=== PATIENT | male | born 1945 | race Two or more races ===

== ENCOUNTER 2022-02-08 21:00 | Emergency (ER) | payer MEDICARE, OTHER ==
[~2022-02-08] VITALS: Ht 167.6 cm; Wt 81.6 kg
--- NOTE | 2022-02-08 21:00 | NUR ---
PATIENT IS AAOX4. ABLE TO MAKE NEEDS KNOWN. COMPLAINING OF RIGHT SHOULDER PAIN SCALE OF 6/10. PLACED COMFORTABLY IN BED. VITALS CHECKED.
--- NOTE | 2022-02-08 21:00 | NUR ---
[id number] from home for glf while walking to bathroom. denies ko, c/o L shoulder pain
--- NOTE | 2022-02-08 21:10 | NUR ---
IV CANNULA G20 INSERTED ON RIGHT AC.
[2022-02-08] MEDS ORDERED: IV NS 0.9% 500 ML BAG IV ONE (21:30)
[2022-02-08] MEDS ORDERED: ACETAMINOPHEN ES 500 MG TABLET PO ONE (21:30)
[2022-02-08] MEDS ORDERED: ACETAMINOPHEN ES 500 MG TABLET ONE ×2 (21:33→21:36)
[2022-02-08 21:46] LABS: EOSINOPHILS % (AUTO) 1.7 % (0.0-6.0); HEMATOCRIT 42 % (39-51); HEMOGLOBIN 14.4 g/dL (13.5-17.5); LYMPHOCYTES # (AUTO) 0.7 K/uL (0.8-4.8); MEAN CORPUSCULAR HGB CONC 34 g/dl (31.0-36.0); MEAN CORPUSCULAR VOLUME 85 fL (80-96); MONOCYTES # (AUTO) 0.5 K/uL (0.1-1.30); MONOCYTES % (AUTO) 5.7 % (2.0-12.0); NEUTROPHILS # (AUTO) 7.5 K/uL (1.8-8.9); NEUTROPHILS % (AUTO) 84.6 % (43.0-81.0); PLATELET COUNT (AUTO) 168 K/uL (150-450); WHITE BLOOD COUNT (AUTO) 8.9 K/uL (4.3-11.0)
[2022-02-08 22:26] LABS: ALANINE AMINOTRANSFERASE 25 U/L (12-78); ALBUMIN 3.4 g/dL (3.4-5.0); ALKALINE PHOSPHATASE 105 U/L (46-116); ASPARTATE AMINOTRANSFERASE 16 U/L (15-37); BILIRUBIN,DIRECT 0.2 mg/dL (0.0-0.2); BILIRUBIN,TOTAL 0.7 mg/dL (0.2-1.0); CALCIUM, SERUM 8.6 mg/dL (8.5-10.1); CARBON DIOXIDE 24 mmol/L (21-32); CHLORIDE 107 mmol/L (98-107); CREATININE 1.3 mg/dL (0.6-1.3); GLUCOSE 132 mg/dL (74-106); SODIUM SERUM 139 mmol/L (136-145); TOTAL PROTEIN, SERUM 7.2 g/dL (6.4-8.2); UREA NITROGEN, BLOOD 19 mg/dL (7-18)
[2022-02-09 00:14] VITALS: BP 160/80
--- NOTE | 2022-02-09 00:14 | NUR ---
IV CANNULA REMOVED
--- NOTE | 2022-02-09 00:14 | NUR ---
Patient discharged to home in stable condition. Written and verbal after care instructions given. Patient verbalizes understanding of instruction.
== END 2022-02-09 00:15 | disposition home or self-care (01) ==
LOC: ER 21:02
DX: R42 Dizziness and giddiness (principal); M25.512 Pain in left shoulder; I10 Essential (primary) hypertension; E11.9 Type 2 diabetes mellitus without complications
CPT/HCPCS: 99285; 70450; 71045; 93005; 73020; 85025; 80048; 80076; 36415; 84484 ×2; 85730; 82962; J7040